=== PATIENT | female | born 1975 | race Caucasian/White ===

== ENCOUNTER 2018-08-23 10:09 | Emergency (ER) | payer OTHER ==
[~2018-08-23] VITALS: Ht 162.6 cm; Wt 70.3 kg
[2018-08-23] MEDS ORDERED: NORA-BE0.35 MG PO (10:26)
[2018-08-23] MEDS ORDERED: ZANTAC150 MG PO (10:26)
[2018-08-23] MEDS ORDERED: CELEXA20 MG PO (10:26)
[2018-08-23] MEDS ORDERED: FLONASE ALLERG9.9 ML NAS (12:17)
--- NOTE | 2018-08-24 15:24 | EKG ---
[facility] [address] [facility] [place] [address] Signed Normal sinus rhythm Normal ECG No previous ECGs available Confirmed by BLAS TIRADO MD ([id number] on 08/24/2018 3:24:15 PM Electronically Signed By: BLAS TIRADO MD 08/24/18 1524 PATIENT NAME: FRED COLLINS BETH Electrocardiogram DATE OF : 77 PHYSICIAN: BLAS TIRADO MD REPORT #: [id number] REPORT IS CONFIDENTIAL AND NOT TO BE RELEASED WITHOUT AUTHORIZATION
== END 2018-08-23 12:25 | disposition home or self-care (01) ==
LOC: ED 10:09
DX: J45.909 Unspecified asthma, uncomplicated (principal); J31.0 Chronic rhinitis; K21.9 Gastro-esophageal reflux disease without esophagitis; Z79.899 Other long term (current) drug therapy
CPT/HCPCS: 36415; 71046; 80053; 84484; 85025; 93005; 93010; 99285-25